=== PATIENT | female | born 1980 | race Asian ===

== ENCOUNTER 2020-10-09 16:50 | Outpatient (CLI) | payer OTHER ==
[2020-10-09 20:16] LABS: BILIRUBIN,URINE NEGATIVE (NEGATIVE); GLUCOSE, URINE (UA) NEGATIVE (NEGATIVE); KETONES,URINE (UA) NEGATIVE (NEGATIVE); LEUKOCYTE ESTERASE, URINE MODERATE (NEGATIVE); NITRITE,URINE NEGATIVE (NEGATIVE); OCCULT BLOOD,URINE SMALL (NEGATIVE); PH,URINE 7.5 PH (5.0-7.5); PROTEIN,URINE NEGATIVE (NEGATIVE); UROBILINOGEN,URINE 0.2 (NORMAL) E.U./dL (NORMAL)
[2020-10-09 20:18] LABS: CLARITY,URINE CLEAR (CLEAR)
[2020-10-09 20:24] LABS: BACTERIA,URINE Few /HPF (None Seen); RBC,URINE 0-5 /HPF (0-5); SQUAMOUS EPITHELIAL CELL,UR RARE Squamous (<= Few); WBC CLUMPS,URINE PRESENT
[2020-10-09 20:25] LABS: AMORPHOUS SEDIMENT,UR Rare /LPF
== END 2020-10-09 23:59 | disposition home or self-care (01) ==
LOC: LAB.R 16:50
PROVIDERS: ATTEND Emergency Medicine
DX: N39.0 Urinary tract infection, site not specified (principal)
CPT/HCPCS: 81001; 81003